=== PATIENT | male | born 1985 | race Caucasian/White ===

== ENCOUNTER 2020-11-03 02:29 | Emergency (ER) | payer OTHER ==
[~2020-11-03] VITALS: Ht 182.9 cm; Wt 66.0 kg
[2020-11-03 02:33] VITALS: BP 127/71
[2020-11-03] MEDS ORDERED: proparacaine 0.5% ophthalmic drops 15ml EACHEYE ONE (02:40)
[2020-11-03] MEDS ORDERED: ERYT1OIN6 EACHEYE (03:02)
[2020-11-03] MEDS ORDERED: erythromycin ophthalmic ointment 1gm tube RIGHTEYE ONE (03:05)
== END 2020-11-03 03:30 | disposition home or self-care (01) ==
LOC: ER 02:30
DX: T15.91XA Foreign body on external eye, part unspecified, right eye, initial encounter (principal); Z79.899 Other long term (current) drug therapy; X58.XXXA Exposure to other specified factors, initial encounter; Y93.89 Activity, other specified; Y92.89 Other specified places as the place of occurrence of the external cause; Y99.8 Other external cause status
CPT/HCPCS: 65205; 99284

== ENCOUNTER 2023-05-28 12:53 | Emergency (ER) | payer MEDICAID, BC ==
[~2023-05-28] VITALS: Ht 182.9 cm; Wt 73.0 kg
[2023-05-28 13:07] VITALS: BP 145/88; PULSE 82; RESP 19; TEMP 98.5; O2SAT 100
--- NOTE | 2023-05-28 14:17 | NUR ---
AUTO SERVICE DISPATCHER ASSESSMENT REVIEWED BY [facility]; CS; APPROVED
[2023-05-28 15:18] LABS: BASOPHILS % (AUTO) 0.5 % (0-1); EOSINOPHILS # (AUTO) 0.2 X10'3 (0-0.9); EOSINOPHILS % (AUTO) 1.7 % (0-6); HEMATOCRIT 44.3 % (42.0-52.0); HEMOGLOBIN 15.5 g/dl (14.0-17.9); LYMPHOCYTES # (AUTO) 1.6 X10'3 (1.1-4.8); LYMPHOCYTES % (AUTO) 18.4 % (21-51); MEAN CORPUSCULAR HEMOGLOBIN 35.7 PG (27.0-31.0); MEAN CORPUSCULAR VOLUME 101.9 FL (78-98); MONOCYTES # (AUTO) 0.7 X10'3 (0-0.9); MONOCYTES % (AUTO) 7.7 % (2-12); NEUTROPHILS # (AUTO) 6.3 X10'3 (1.8-7.7); NEUTROPHILS % (AUTO) 71.7 % (42-75); PLATELET COUNT 159 X10'3 (140-440); RED BLOOD COUNT 4.34 X10'6 (4.70-6.10); RED CELL DISTRIBUTION WIDTH 12.8 % (11.5-14.5); WHITE BLOOD COUNT 8.8 X10'3 (4.5-11.0)
[2023-05-28 15:26] LABS: ALANINE AMINOTRANSFERASE 24 U/L (12-78); ALBUMIN 4.4 G/DL (3.4-5.0); ALBUMIN/GLOBULIN RATIO 1.2 (1.1-1.5); ALKALINE PHOSPHATASE 77 IU/L (46-116); ANION GAP 10 (8-16); ASPARTATE AMINO TRANSFERASE 25 U/L (10-37); BILIRUBIN,TOTAL 0.7 MG/DL (0.1-1.0); BLOOD UREA NITROGEN 13 MG/DL (7-18); BUN/CREATININE RATIO 15.1 (10.0-20.0); CALCIUM 9.9 MG/DL (8.5-10.1); CHLORIDE 101 MMOL/L (99-107); CREATININE 0.86 MG/DL (0.60-1.10); GLUCOSE 97 MG/DL (70-104); SODIUM 139 MMOL/L (135-145); TOTAL CARBON DIOXIDE 27.7 MMOL/L (24-32); eCRCL 121 ML/MIN; eGFR > 90 ML/MIN
[2023-05-28 15:31] LABS: POTASSIUM 3.6 MMOL/L (3.5-5.1)
[2023-05-28] MEDS ORDERED: CefTRIAXone 250MG inj IV ONE (15:50)
[2023-05-28] MEDS ORDERED: CefTRIAXone 2gm/D5W 50ml IV ONE (15:55)
[2023-05-28 16:11] LABS: C-REACTIVE PROTEIN 5.67 MG/DL (0.0-0.5)
[2023-05-28] MEDS ORDERED: IBUP-1986 PO (17:00)
[2023-05-28] MEDS ORDERED: CEPH-585 PO (17:00)
== END 2023-05-28 17:11 | disposition home or self-care (01) ==
LOC: ER 12:54
DX: M25.461 Effusion, right knee (principal); F17.200 Nicotine dependence, unspecified, uncomplicated
CPT/HCPCS: 36415; 73562; 80053; 84550; 85025; 86140; 87040; 96365; 99284; J0696

== ENCOUNTER 2024-08-19 15:09 | Emergency (ER) | payer MEDICAID ==
[~2024-08-19] VITALS: Ht 182.9 cm; Wt 75.8 kg
[~2024-08-19 15:09] MED LIST: IBUP-1986 PO
[2024-08-19 17:19] VITALS: BP 120/91; PULSE 72; RESP 16; TEMP 97.8; O2SAT 98
[2024-08-19 18:08] LABS: STREP A SCREEN NEGATIVE (Neg)
== END 2024-08-19 17:23 | disposition home or self-care (01) ==
LOC: ER 15:10
DX: J02.9 Acute pharyngitis, unspecified (principal); Z79.899 Other long term (current) drug therapy
CPT/HCPCS: 87081; 87880; 99283